=== PATIENT | female | born 1935 | race Caucasian/White ===

== ENCOUNTER 2016-05-24 08:00 | Day surgery (SDC) | payer MEDICARE, OTHER ==
[2016-05-24] MEDS ORDERED: TROPICAMIDE 1% OPHTH 2 ML DROPS OPTH ONE (08:14)
[2016-05-24] MEDS ORDERED: KETOROLAC 0.45% OPHTH DROPS OPTH ONE (08:14)
[2016-05-24] MEDS ORDERED: CYCLOPENTOLATE 1% OPHTH DROPS 2 ML OPTH ONE (08:14)
[2016-05-24] MEDS ORDERED: LACTATED RINGERS 500 ML IV ONE (08:24)
[2016-05-24] MEDS ORDERED: MIDAZOLAM 2 MG/2 ML VIAL IVP ONE (09:00)
[2016-05-24] MEDS ORDERED: EPINEPHrine 1 MG/ML AMP IO ONE (09:08)
[2016-05-24] MEDS ORDERED: levoFLOXacin 0.5% OPHTH DROPS 5 ML OPTH ONE (09:08)
[2016-05-24] MEDS ORDERED: PROPARACAINE 0.5% OPHTH DROPS 15 ML OPTH ONE (09:08)
[2016-05-24] MEDS ORDERED: BRIMONIDINE 0.2% OPHTH DROPS 5 ML OPTH ONE (09:08)
[2016-05-24] MEDS ORDERED: TETRACAINE OPHTH DROPS 2 ML OPTH ONE (09:08)
[2016-05-24] MEDS ORDERED: BSS/LIDOCAINE/EPINEPHRINE 1 ML SYRINGE IO ONE (09:08)
[2016-05-24] MEDS ORDERED: CHONDR SULF/HYALURONATE SYRINGE IO ONE (09:08)
== END 2016-05-24 08:01 | disposition home or self-care (01) ==
PROC: 08RJ3JZ Replacement of Right Lens with Synthetic Substitute, Percutaneous Approach (ICD-10-PCS; principal; 2016-05-24 09:10)
DX: H25.11 Age-related nuclear cataract, right eye (principal); Z87.891 Personal history of nicotine dependence
CPT/HCPCS: 66984; V2632

== ENCOUNTER 2017-02-23 07:16 | Outpatient (CLI) | payer MEDICARE, OTHER ==
[2017-02-23 19:22] LABS: ALBUMIN/GLOBULIN RATIO 1.7 (1.0-2.2); BASOPHILS # (AUTO) 0.1 10^3/uL (0.0-0.1); BASOPHILS % (AUTO) 1.2 %; BILIRUBIN,TOTAL 0.4 mg/dL (0.2-1.0); BUN - BLOOD UREA NITROGEN 20 mg/dL (6-20); CALCIUM 9.4 mg/dL (8.5-10.3); CARBON DIOXIDE - CO2 25 mmol/L (21-32); CHLORIDE 105 mmol/L (101-111); CREATININE 0.7 mg/dL (0.4-1.0); EOSINOPHILS # (AUTO) 0.3 10^3/uL (0.0-0.7); EOSINOPHILS % (AUTO) 4.3 %; GFR - MDRD 81 (>89); GLUCOSE 84 mg/dL (70-100); HGB - HEMOGLOBIN 13.9 g/dL (12.0-16.0); LYMPHOCYTES # (AUTO) 1.6 10^3/uL (1.5-3.5); LYMPHOCYTES % (AUTO) 24.5 %; MEAN CORPUSCULAR HEMOGLOBIN 30.5 pg (27.0-31.0); MEAN CORPUSCULAR HGB CONC 33.1 g/dL (32.0-36.0); MEAN CORPUSCULAR VOLUME 92.1 fL (81.0-99.0); MONOCYTES # (AUTO) 0.6 10^3/uL (0.0-1.0); MONOCYTES % (AUTO) 9.2 %; NEUTROPHILS # (AUTO) 3.9 10^3/uL (1.5-6.6); NEUTROPHILS % (AUTO) 60.8 %; NUCLEATED RED BLOOD CELLS AUTO 0.1 /100WBC; POTASSIUM 4.9 mmol/L (3.5-5.0); RED BLOOD COUNT 4.56 10^6/uL (4.20-5.40); RED CELL DISTRIBUTION WIDTH 13.9 % (12.0-15.0); SODIUM 137 mmol/L (135-145); TOTAL PROTEIN 6.4 g/dL (6.7-8.2); UNCORRECTED WHITE BLOOD COUNT 6.5 x10^3/uL; WHITE BLOOD COUNT 6.5 x10^3/uL (4.8-10.8)
== END 2017-02-23 07:17 | disposition home or self-care (01) ==
LOC: LAB.WCP 07:16
PROVIDERS: ATTEND Family Medicine
DX: R53.83 Other fatigue (principal)
CPT/HCPCS: 36415; 80053; 84443; 85025

== ENCOUNTER 2018-01-17 07:37 | Outpatient (CLI) | payer MEDICARE, OTHER ==
[2018-01-17] MEDS ORDERED: GADOBUTROL 7.5 MMOL/7.5 ML VIAL ONE (08:23)
[2018-01-17] MEDS ORDERED: GADOBUTROL 7.5 MMOL/7.5 ML VIAL IVP ONE ×2 (09:09)
--- NOTE | 2018-01-17 19:27 | MRI Report ---
Reason: PITUITARY MACROADENOMA Procedure Date: 01/17/2018 Accession Number: [id number] / [id number] Procedure: MRI - Brain W/WO CPT Code: FULL RESULT: EXAM: MRI BRAIN WITHOUT AND WITH CONTRAST EXAM DATE: 01/17/2018 09:27 AM. CLINICAL HISTORY: PITUITARY MACROADENOMA. COMPARISON: MRI of the brain and pituitary with and without contrast 02/02/2016. TECHNIQUE: Multiplanar, multisequence T1-weighted and fluid-sensitive MR sequences of the brain were performed. Sequences optimized for routine evaluation. Other: None. IV Contrast: 6.5 mL Gadavist. FINDINGS: The diffusion-weighted images are normal. There is no evidence of acute or subacute cerebral infarction. The craniocervical junction is normal. The corpus callosum is of normal size and configuration. There is a mucus retention cyst at the base of the right maxillary sinus. The optic nerves demonstrate symmetric signal intensity and size. The bilateral parotid spaces exhibit normal signal intensity. There is fluid intensity within the bilateral mastoid air cells. The optic nerves demonstrate symmetric signal intensity and size. The T2* sequence is normal. There is no evidence of subacute or chronic hemorrhage. The high resolution pre-and postcontrast T1 and T2-weighted images of the pituitary and sella again exhibits an area of hypointensity extending superiorly and medially from the cavernous right intracranial internal carotid artery. This appearance is unchanged dating back to the 2016 MRI. There is deviation of the infundibulum to the left. There is unchanged mild thickening and enhancement of the infundibulum. There is a small amount of enhancing tissue along the floor of the left side of the sella. This is unchanged when compared to the previous exam. There is no suprasellar mass. There has been resection within the right side of the sella. The small amount of isodense enhancing tissue abutting the right supraclinoid intracranial internal carotid artery is unchanged and contacts the thigh approximately 45 degrees. This may reflect a small amount of residual unchanged tumor. The FLAIR images demonstrate multiple punctuate T2 hyperintensities within the subcortical, deep, and periventricular white matter. This is consistent with a mild degree of chronic small vessel ischemia. The T2* sequence is normal. There is no evidence of subacute or chronic hemorrhage. There is normal enhancement within the brain parenchyma. There is normal enhancement within the deep venous sinuses. IMPRESSION: 1. There is no evidence of acute or subacute cerebral infarction. 2. There is unchanged deviation of the infundibulum to the left which exhibits mild thickening and enhancement. It is unchanged in appearance. There has been surgical resection again within the right side of the adenohypophysis. There is no evidence of new nodular enhancement to suggest areas of recurrent tumor. 3. There is mild degree of chronic small vessel ischemia.
== END 2018-01-17 07:38 | disposition home or self-care (01) ==
LOC: DI 07:37
PROVIDERS: ATTEND Family Medicine
DX: D35.2 Benign neoplasm of pituitary gland (principal); I13.0 Hypertensive heart and chronic kidney disease with heart failure and stage 1 through stage 4 chronic kidney disease, or unspecified chronic kidney disease; E11.22 Type 2 diabetes mellitus with diabetic chronic kidney disease; N18.9 Chronic kidney disease, unspecified; I50.9 Heart failure, unspecified; Z85.89 Personal history of malignant neoplasm of other organs and systems
CPT/HCPCS: 70553; A9585

== ENCOUNTER 2018-02-21 08:22 | Outpatient (CLI) | payer MEDICARE, OTHER ==
--- NOTE | 2018-02-21 14:25 | MRI Report ---
Reason: NECK PAIN Procedure Date: 02/21/2018 Accession Number: [id number] / [id number] Procedure: MRI - Cervical Spine W/O CPT Code: FULL RESULT: EXAM: MRI CERVICAL SPINE WITHOUT CONTRAST EXAM DATE: 02/21/2018 09:04 AM. CLINICAL HISTORY: Neck pain. COMPARISONS: Cervical spine 2 view 01/24/2018 11:06 AM. TECHNIQUE: Multiplanar, multisequence T1-weighted and fluid-sensitive sequences of the cervical spine without contrast. Other: None. FINDINGS: Neurologic Structures: The visualized posterior fossa structures are unremarkable. No signal abnormality in the visualized spinal cord. The spinal canal is adequate. Alignment: Straightening of the cervical spine is noted. Multilevel minimal, 1-2 mm, spondylolisthesis is seen including: C3-C4, C4-C5, C7-T1, T1-T2, T2-T3, and T3-T4. Bone Marrow: No gross fractures or bone lesions. No marrow edema. Interspace Levels/Facets: C1-C2: Unremarkable on sagittal series. C2-C3: Unremarkable. C3-C4: Mild left-sided degenerative facet change is seen. Minimal central dorsal disk bulge is seen. Anterior concavity to the ventral thecal sac is noted. No stenosis. C4-C5: Mild right-sided degenerative facet change is seen. Mild degenerative uncovertebral change is noted. Mild left foraminal stenosis. C5-C6: Mild loss of disk space height is seen. Diskogenic endplate irregularity and signal abnormality is seen. Mild circumferential bulge of disk/osteophyte complex is seen. Degenerative uncovertebral change is seen bilaterally. Effacement of the ventral thecal sac is noted with mild canal stenosis. Moderate bilateral foraminal stenosis is seen. C6-C7: Mild loss of disk space height is seen. Mild diskogenic endplate irregularity is noted. Minimal dorsal and mild ventral disk bulge is seen. Mild degenerative uncovertebral change is seen. Mild bilateral foraminal stenosis. C7-T1: Mild right-sided degenerative facet change. Mild right foraminal stenosis. Musculature: Normal. No edema or fatty atrophy. Other: The paravertebral and prevertebral soft tissues are normal. IMPRESSION: 1. Normal appearance to the cervical spinal cord. 2. Mild spondylosis is seen throughout the cervical and upper thoracic spine. Multilevel minimal spondylolisthesis is seen. 3. C4-C5: Left mild foraminal stenosis. 4. C5-C6: Mild canal stenosis. Bilateral moderate foraminal stenosis. 5. C6-C7: Bilateral mild foraminal stenosis. 6. C7-T1: Right mild foraminal stenosis. RADIA
== END 2018-02-21 08:23 | disposition home or self-care (01) ==
LOC: DI 08:22
PROVIDERS: ATTEND Family Medicine
DX: M48.02 Spinal stenosis, cervical region (principal); M47.812 Spondylosis without myelopathy or radiculopathy, cervical region; M47.814 Spondylosis without myelopathy or radiculopathy, thoracic region
CPT/HCPCS: 72141

== ENCOUNTER 2018-08-06 13:44 | Outpatient (CLI) | payer MEDICARE, OTHER | END 2018-08-06 13:45 | disposition critical access hospital (66) | LOC: EMS 13:44 | PROVIDERS: ATTEND Surgery | DX: R07.89 Other chest pain (principal) | CPT/HCPCS: A0425; A0427 ==

== ENCOUNTER 2018-08-06 14:07 | Emergency (ER) | payer MEDICARE, OTHER ==
[2018-08-06 14:46] LABS: BASOPHILS % (AUTO) 0.3 %; EOSINOPHILS # (AUTO) 0.3 10^3/uL (0.0-0.7); EOSINOPHILS % (AUTO) 5.8 %; HGB - HEMOGLOBIN 13.3 g/dL (12.0-16.0); LYMPHOCYTES # (AUTO) 1.2 10^3/uL (1.5-3.5); MEAN CORPUSCULAR HEMOGLOBIN 30.3 pg (27.0-31.0); MEAN CORPUSCULAR HGB CONC 33.3 g/dL (32.0-36.0); MEAN CORPUSCULAR VOLUME 90.9 fL (81.0-99.0); MEAN PLATELET VOLUME 7.2 fL (7.9-10.8); MONOCYTES # (AUTO) 0.5 10^3/uL (0.0-1.0); MONOCYTES % (AUTO) 9.6 %; NEUTROPHILS % (AUTO) 60.3 %; PLT - PLATELET COUNT 407 10^3/uL (130-450); RED BLOOD COUNT 4.41 10^6/uL (4.20-5.40); RED CELL DISTRIBUTION WIDTH 13.8 % (12.0-15.0)
--- NOTE | 2018-08-06 14:50 | XRAY Report ---
Reason: chest pain Procedure Date: 08/06/2018 Accession Number: [id number] / [id number] Procedure: XR - Chest 1 View X-Ray CPT Code: 38223 FULL RESULT: EXAM: CHEST RADIOGRAPHY EXAM DATE: 08/06/2018 02:15 PM. CLINICAL HISTORY: Chest Pain. COMPARISON: 08/23/2009 8:49 PM. TECHNIQUE: 1 view. FINDINGS: Lungs/Pleura: Minor streaky opacities are seen in the left lung base likely due to atelectasis or scarring. There is no consolidation. No effusion is present. There is no vascular congestion or pneumothorax. Mediastinum: Heart and mediastinal contours are notable for aortic calcification. Other: None. IMPRESSION: Minor left basilar scarring/atelectasis, otherwise, no acute findings. No CHF/fluid overload. RADIA
[2018-08-06 14:58] LABS: ALBUMIN 3.8 g/dL (3.2-5.5); ALBUMIN/GLOBULIN RATIO 1.5 (1.0-2.2); BILIRUBIN,TOTAL 0.5 mg/dL (0.2-1.0); CALCIUM 9.1 mg/dL (8.5-10.3); CREATININE 0.8 mg/dL (0.4-1.0); TOTAL PROTEIN 6.3 g/dL (6.7-8.2)
--- NOTE | 2018-08-06 15:17 | ED Physician Documentation ---
History of Present Illness - Stated complaint Stated Complaint: CHEST DISCOMFORT - Chief complaint Chief Complaint: Cardiac - Additonal information Additional information: 83-year-old female presents the emergency department for evaluation of palpitations which is been ongoing since this Sunday. The patient reports an ongoing racing in her chest. The patient denies any chest pain and only complains of the palpitations and abnormal sensation in her chest. The patient denies dyspnea on exertion, cough, URI symptoms or fever. No triggering factors. No relieving factors. No other associated symptoms. Review of Systems Constitutional: denies: Fever Eyes: denies: Discharge Ears: denies: Ear pain Nose: denies: Congestion Throat: denies: Sore throat Cardiac: reports: Palpitations. denies: Chest pain / pressure, Pedal edema Respiratory: denies: Dyspnea, Cough GI: denies: Abdominal Pain : denies: Dysuria Skin: denies: Rash Musculoskeletal: denies: Neck pain Neurologic: denies: Generalized weakness PD PAST MEDICAL HISTORY - Past Medical History Cardiovascular: None Respiratory: None Endocrine/Autoimmune: None GI: None : None HEENT: Other Psych: None Musculoskeletal: Osteoarthritis Derm: Psoriasis - Past Surgical History General: Appendectomy HEENT: Cataracts - Present Medications Home Medications: Ambulatory Orders Medication Instructions Recorded Confirmed Ascorbic Acid [Vitamin C] 1 tab PO DAILY 05/02/16 05/24/16 Multivitamin [Multivitamins] 1 tab PO DAILY 05/02/16 05/24/16 - Allergies Allergies/Adverse Reactions: Allergies Allergy/AdvReac Type Severity Reaction Status Date / Time morphine Allergy Nausea Verified 08/06/18 14:14 PD ED PE NORMAL - General General: Alert and oriented X 3, No acute distress - HEENT HEENT: Atraumatic, PERRL, EOMI, Ears normal - Neck Neck: Supple, no meningeal sign - Cardiac Cardiac: RRR, Strong equal pulses - Respiratory Respiratory: No respiratory distress, Clear bilaterally - Abdomen Abdomen: Soft, Non tender - Derm Derm: Normal color - Extremities Extremities: No deformity - Neuro Neuro: Alert and oriented X 3, Normal speech - Psych Psych: Normal mood Results - Vitals Vitals: Vital Signs - 24 hr 08/06/18 08/06/18 08/06/18 14:11 14:21 15:59 Temperature 36.4 C L Heart Rate 108 H 62 68 Respiratory 20 16 22 Rate Blood Pressure 125/103 H 105/60 131/82 H O2 Saturation 96 97 98 08/06/18 16:47 Temperature Heart Rate 79 Respiratory 24 Rate Blood Pressure 116/96 H O2 Saturation 94 Oxygen O2 Source Room air - EKG (time done) No standard instances Rhythm: NSR Intervals: Normal CO, QRS normal QRS: Normal Ischemia: Normal ST segments - Labs Labs: Laboratory Tests 08/06/18 08/06/18 08/06/18 14:41 14:41 14:41 WBC 5.0 RBC 4.41 Hgb 13.3 Hct 40.1 MCV 90.9 MCH 30.3 MCHC 33.3 RDW 13.8 Plt Count 407 MPV 7.2 L Neut # (Auto) 3.0 Lymph # (Auto) 1.2 L Larue # (Auto) 0.5 Eos # (Auto) 0.3 Baso # (Auto) 0.0 Absolute Nucleated RBC 0.00 Nucleated RBC % 0.0 D-Dimer Sodium 138 Potassium 4.1 Chloride 106 Carbon Dioxide 23 Anion Gap 9.0 BUN 16 Creatinine 0.8 Estimated GFR (MDRD) 69 L Glucose 89 Calcium 9.1 Total Bilirubin 0.5 AST 26 ALT 18 Alkaline Phosphatase 63 Troponin I < 0.04 Total Protein 6.3 L Albumin 3.8 Globulin 2.5 Albumin/Globulin Ratio 1.5 Lipase 25 08/06/18 08/06/18 14:41 17:00 WBC RBC Hgb Hct MCV MCH MCHC RDW Plt Count MPV Neut # (Auto) Lymph # (Auto) Larue # (Auto) Eos # (Auto) Baso # (Auto) Absolute Nucleated RBC Nucleated RBC % D-Dimer 206.4 Sodium Potassium Chloride Carbon Dioxide Anion Gap BUN Creatinine Estimated GFR (MDRD) Glucose Calcium Total Bilirubin AST ALT Alkaline Phosphatase Troponin I < 0.04 Total Protein Albumin Globulin Albumin/Globulin Ratio Lipase - Rads (name of study) CXR Radiology: Final report received, See rad report (IMPRESSION: Minor left basilar scarring/atelectasis, otherwise, no acute findings. No CHF/fluid overload. ) PD MEDICAL DECISION MAKING - ED course ED course: The patient's workup does not reveal a clear etiology for the source of her symptoms. The patient currently appears appropriate for discharge with further workup as an outpatient. I recommended an outpatient echocardiogram, Holter monitor and stress test. The patient understands and agrees. I discussed warning signs and recommended returning to the emergency department immediately for any worsening or any concerns Departure - Departure Disposition: 01 Home, Self Care Clinical Impression: Palpitations Condition: Good Instructions: ED Palpitations Follow-Up: More Wilkerson MD [Primary Care Provider] - Within 3 Days (Please follow-up with your primary care for further investigation. Please ask your primary care about an outpatient echocardiogram, Holter monitor and stress test to further assess her symptoms.) Comments: Please return to the emergency department for any worsening or any concerns
[2018-08-06] MEDS ORDERED: LORazepam 2 MG/ML VIAL IVP STA (15:42)
[2018-08-06 18:27] VITALS: BP 105/71
== END 2018-08-06 18:39 | disposition home or self-care (01) ==
LOC: EDUNIT# → ED 14:07
DX: R00.2 Palpitations (principal)
CPT/HCPCS: 36415; 71045; 80053; 83690; 84484; 85025; 85379; 93005; 96374; 99283; J2060

== ENCOUNTER 2020-03-24 14:34 | Outpatient (CLI) | payer MEDICARE, OTHER ==
[2020-03-24] MEDS ORDERED: GADOBUTROL 7.5 MMOL/7.5 ML VIAL ONE (15:06)
[2020-03-24] MEDS ORDERED: GADOBUTROL 7.5 MMOL/7.5 ML VIAL IVP ONE (16:40)
--- NOTE | 2020-03-24 17:11 | MRI Report ---
PROCEDURE: Brain W/WO INDICATIONS: PITUITARY MACROADENOMA CONTRAST: IV CONTRAST: Gadavist ml: 6 TECHNIQUE: Noncontrast sagittal and axial FLAIR, axial gradient echo, axial diffusion and ADC through the brain. Thin-slice sagittal and coronal T1 spin echo, coronal T2 fast spin echo through the pituitary. Aft er the administration contrast, optional dynamic coronal T1 spin echo, thin-slice coronal and sagitta l T1 spin echo images through the pituitary fossa; axial T1 spin echo with fat saturation through the brain. COMPARISON: 01/17/2018, 02/07/2016, 02/02/2016, 12/31/2013. Correlation is also made with the [facility] brain MR angiogram, 03/24/2020. FINDINGS: Image quality: Excellent. Pituitary Gland: Stable changes from pituitary resection can be seen. Pituitary tissue can be seen i nferiorly and on the left side. The pituitary stalk is thickened and is seen to the left of the midli ne. On precontrast T1-weighted images, the posterior pituitary bright spot is only faintly seen. Adjacent to the right cavernous internal carotid artery, there is again seen a small amount of poorly enhancing tissue that measures 2 to 3 mm, which is unchanged compared to the prior. The optic chiasm and the ventral forebrain demonstrate an unremarkable appearance. CSF Spaces: Ventricles are normal in size and shape. Basal cisterns are patent. No extra-axial flu id collections. Brain: No intracranial bleeds or mass effects. No abnormal intracranial enhancement. Concepcion-white ma tter interface is intact. Diffusion weighted images demonstrate no acute ischemic insults. Brain par enchymal volume loss and chronic small vessel ischemic change seen. Brainstem is normal. Normal intr avascular flow voids are present. Prominent perivascular spaces are incidentally noted. Skull and face: Calvarial marrow is normal in signal. Orbits appear normal. Sinuses: Sinuses and mastoids are clear. IMPRESSION: Stable prior pituitary resection changes, with no definite findings of abnormal recurren t tissue. There is a small amount of stable likely residual tumor seen on the right adjacent to the cavernous i nternal carotid artery. The pituitary infundibulum is thickened and deviated to the left, as before. Age-appropriate brain parenchymal volume loss and chronic small vessel ischemic change can be seen. Reviewed by: Roman Monzon MD on 03/24/2020 4:10 PM [facility] Approved by: Roman Monzon MD on 03/24/2020 4:10 PM [place] Station ID: [id number]
--- NOTE | 2020-03-24 17:13 | MRI Report ---
PROCEDURE: Angio Brain W/O (MRA) INDICATIONS: PITUITARY MACROADENOMA TECHNIQUE: Noncontrast axial 3-D buur-uh-syziti MR angiogram, with 3-dimensional maximum intensity projection (M IP) reformats of the internal carotid arteries and posterior circulation then performed. COMPARISON: 02/07/2016. Correlation is made with the accompanying brain MRI, 03/24/2020. FINDINGS: Image quality: Excellent. Anterior circulation: Intracranial internal carotid arteries demonstrate normal size and intralumina l flow signal. The flow within the paired anterior cerebral arteries is normal and symmetric. The f low within the middle cerebral arteries is normal and symmetric. The anterior communicating artery i s seen. No stenoses, occlusions, or aneurysms. Posterior circulation: Visualized portions of the vertebral arteries demonstrate normal caliber, and join to form a normal appearing basilar artery. Bilateral type origins of the posterior cereb ral arteries can be seen. The flow within the posterior cerebral arteries is normal and symmetric. N o stenoses, occlusions, or aneurysms. IMPRESSION: No aneurysms are seen. No significant stenosis is identified. Reviewed by: Roman Monzon MD on 03/24/2020 4:12 PM [facility] Approved by: Roman Monzon MD on 03/24/2020 4:12 PM [facility] Station ID: [id number]
== END 2020-03-24 14:35 | disposition home or self-care (01) ==
LOC: DI 14:34
PROVIDERS: ATTEND Physician Assistant
DX: D35.2 Benign neoplasm of pituitary gland (principal); R42 Dizziness and giddiness; R51.9 Headache, unspecified; R00.2 Palpitations
CPT/HCPCS: 70553; A9585; 70544

== ENCOUNTER 2020-07-02 12:51 | Outpatient (CLI) | payer MEDICARE, OTHER ==
--- NOTE | 2020-07-02 16:01 | Ultrasound Report ---
PROCEDURE: Carotid Doppler Complete INDICATIONS: VERTIGO TECHNIQUE: Color and pulse Doppler interrogation was performed of both carotid systems, with image documentation and velocity measurements. COMPARISON: None. FINDINGS: Right side: Brachial blood pressure: 129/70 mm Hg. Common carotid artery peak systolic velocity: 81 cm/sec. Internal carotid artery peak systolic velocity: 68 cm/sec. Internal carotid artery end diastolic velocity: 24 cm/sec. External carotid artery peak systolic velocity: 98 cm/sec. ICA/CCA peak systolic ratio: 0.8 . Concepcion scale imaging description: Moderate to severe plaque at the bifurcation. Percent internal carotid artery stenosis: Less than 50% stenosis . Vertebral artery: Flow direction is antegrade. Left side: Brachial blood pressure: 101/72 mm Hg. Common carotid artery peak systolic velocity: 70 cm/sec. Internal carotid artery peak systolic velocity: 119 cm/sec. Internal carotid artery end diastolic velocity: 34 cm/sec. External carotid artery peak systolic velocity: 122 cm/sec. ICA/CCA peak systolic ratio: 1.7 . Concepcion scale imaging description: Moderate to severe plaque at the bifurcation. Percent internal carotid artery stenosis: Less than 50% narrowing . Vertebral artery: Flow direction is antegrade. IMPRESSION: Less than 50% stenosis of the internal carotid arteries bilaterally. The estimate of stenosis included in the report of the imaging study was calculated using the NASCET method Reviewed by: Laly Mccarthy MD on 07/02/2020 4:00 PM PST Approved by: Laly Mccarthy MD on 07/02/2020 4:00 PM PST Station ID: [id number]
== END 2020-07-02 12:52 | disposition home or self-care (01) ==
LOC: DI 12:51
PROVIDERS: ATTEND Psychiatry & Neurology Neurology
DX: R42 Dizziness and giddiness (principal)
CPT/HCPCS: 93880

== ENCOUNTER 2020-09-29 13:59 | Outpatient (CLI) | payer MEDICARE, OTHER ==
[2020-09-29 14:49] LABS: BASOPHILS # (AUTO) 0.1 10^3/uL (0.0-0.1); BASOPHILS % (AUTO) 1.7 %; EOSINOPHILS # (AUTO) 0.3 10^3/uL (0.0-0.7); EOSINOPHILS % (AUTO) 5.2 %; HCT - HEMATOCRIT 41.9 % (37.0-47.0); HGB - HEMOGLOBIN 13.9 g/dL (12.0-16.0); LYMPHOCYTES # (AUTO) 1.4 10^3/uL (1.5-3.5); LYMPHOCYTES % (AUTO) 23.9 %; MEAN CORPUSCULAR HGB CONC 33.2 g/dL (32.0-36.0); MEAN CORPUSCULAR VOLUME 93.5 fL (81.0-99.0); MONOCYTES # (AUTO) 0.6 10^3/uL (0.0-1.0); MONOCYTES % (AUTO) 9.3 %; NEUTROPHILS # (AUTO) 3.5 10^3/uL (1.5-6.6); NEUTROPHILS % (AUTO) 59.7 %; PLT - PLATELET COUNT 420 10^3/uL (130-450); RED BLOOD COUNT 4.48 10^6/uL (4.20-5.40); RED CELL DISTRIBUTION WIDTH 13.3 % (12.0-15.0); WHITE BLOOD COUNT 5.9 x10^3/uL (4.8-10.8)
[2020-09-29 14:59] LABS: ALBUMIN 4.4 g/dL (3.2-5.5); ALBUMIN/GLOBULIN RATIO 1.7 (1.0-2.2); BILIRUBIN,TOTAL 0.5 mg/dL (0.2-1.0); CALCIUM 9.6 mg/dL (8.5-10.3); CREATININE 0.8 mg/dL (0.4-1.0); POTASSIUM 4.5 mmol/L (3.5-5.0)
[2020-09-29 15:16] LABS: THYROID STIMULATING HORMONE 1.68 uIU/mL (0.34-5.60)
[2020-09-29 15:23] LABS: PROLACTIN 3.88 ng/mL
== END 2020-09-29 14:00 | disposition home or self-care (01) ==
LOC: LAB 13:59
PROVIDERS: ATTEND Psychiatry & Neurology Neurology
DX: R42 Dizziness and giddiness (principal); Z87.898 Personal history of other specified conditions
CPT/HCPCS: 36415; 80053; 82607; 82746; 83921; 84146; 84443; 85025

== ENCOUNTER 2021-02-04 10:11 | Outpatient (CLI) | payer MEDICARE, OTHER | END 2021-02-04 10:12 | disposition home or self-care (01) | LOC: DI 10:11 | PROVIDERS: ATTEND Nurse Practitioner | DX: R00.2 Palpitations (principal); R07.89 Other chest pain; I95.89 Other hypotension; I87.8 Other specified disorders of veins | CPT/HCPCS: 93306 ==

== ENCOUNTER 2022-02-13 08:48 | Outpatient (CLI) | payer MEDICARE, OTHER ==
[~2022-02-13 08:48] MED LIST: GADOBUTROL 7.5 MMOL/7.5 ML VIAL ONE
[2022-02-13 09:09] LABS: CREATININE 0.7 mg/dL (0.4-1.0)
[2022-02-13] MEDS ORDERED: GADOBUTROL 7.5 MMOL/7.5 ML VIAL IVP ONE (12:45)
--- NOTE | 2022-02-13 17:33 | MRI Report ---
PROCEDURE: Angio Neck W/WO (MRA) INDICATIONS: PITUITARY MACROADENOMA, VERTIGO, NECK PAIN CONTRAST: IV CONTRAST: Gadavist ml: 6.0 TECHNIQUE: Axial and sagittal balanced GE through the neck. Coronal dynamic MRA after the administration of con trast in the arterial and venous phases, with rotating 3-dimensional maximum intensity projection (NC P) reformats constructed from subtraction images. COMPARISON: Correlation is made with prior carotid ultrasound, 07/02/2020. FINDINGS: Image quality: Excellent. Carotid system: Great vessels demonstrate a conventional anatomy as they arise from the aortic arch. The origins of the common carotid arteries appear normal. The calibers and courses of the common c arotid arteries are likewise normal. The carotid bifurcations demonstrate atherosclerotic irregulari ty. There is approximately 50% narrowing seen involving the left proximal internal carotid artery. No radiographically significant stenosis can be seen involving the right proximal internal carotid brendon ry. The more distal internal carotid arteries demonstrate normal course and caliber. Posterior circulation: There is approximately 50% narrowing seen involving the origin of the left ashleigh tebral artery. No significant stenosis can be seen involving the origin of the right vertebral artery . The more superior portions of the vertebral arteries demonstrate normal course and caliber. Verteb ral arteries join to form a normal appearing basilar artery. Miscellaneous: Subclavian arteries are patent throughout. Pre-contrast images through the neck demo nstrate no soft tissue abnormalities. IMPRESSION: Approximately 50% narrowing seen involving the left proximal internal carotid artery. Approximately 50% stenosis involving the origin of the left vertebral artery. Reviewed by: Roman Monzon MD on 02/13/2022 4:32 PM [facility] Approved by: Roman Monzon MD on 02/13/2022 4:32 PM [facility] Station ID: [id number]
== END 2022-02-13 08:49 | disposition home or self-care (01) ==
LOC: LAB 08:48
PROVIDERS: ATTEND Nurse Practitioner
DX: I65.22 Occlusion and stenosis of left carotid artery (principal); I65.02 Occlusion and stenosis of left vertebral artery; D35.2 Benign neoplasm of pituitary gland; M54.2 Cervicalgia; R42 Dizziness and giddiness
CPT/HCPCS: 36415; 70549; 82565; A9585

== ENCOUNTER 2022-02-15 09:43 | Outpatient (CLI) | payer MEDICARE, OTHER ==
[2022-02-15] MEDS ORDERED: GADOBUTROL 7.5 MMOL/7.5 ML VIAL IVP ONE (11:13)
--- NOTE | 2022-02-15 12:10 | MRI Report ---
PROCEDURE: Brain W/WO INDICATIONS: PITUITARY MACROADENOMA, VERTIGO, NECK PAIN CONTRAST: IV CONTRAST: Gadavist ml: 6.0 TECHNIQUE: Noncontrast axial T1 spin echo, axial T2 fast spin echo, sagittal and axial FLAIR, coronal T2 fast sp in echo, axial gradient echo, axial diffusion and ADC through the brain. After the administration of contrast, axial and coronal T1 spin echo with fat saturation through the brain. COMPARISON: MRI brain 03/24/2020, 01/17/2018, 01/23/2020 FINDINGS: Image quality: Excellent. CSF spaces: Basal cisterns are patent. No extra-axial fluid collections. Ventricles are normal in size and shape. Brain: No midline shift. No intracranial bleeds or masses. No abnormal intracranial enhancement. There is cerebral volume loss for age. There is periventricular white matter chronic small vessel is chemic change. The brainstem appears normal. Diffusion-weighted images demonstrate no acute ischemi c insults. No chronic ischemic insults. Normal intravascular flow voids are present. Surgical changes reflecting pituitary resection with residual tissue inferiorly is a again identified . Pituitary is not remains deviated to left midline shift. No visualized evidence of mass. Skull and face: Calvarial marrow is normal in signal. Orbits appear normal. Sinuses: Sinuses and mastoids appear clear. IMPRESSION: 1. No acute intracranial process. 2. Moderate atrophy and chronic microvascular ischemic changes. 3. Stable pituitary resection changes. No evidence of recurrent disease. Reviewed by: Laly Mccarthy MD on 02/15/2022 12:09 PM PDT Approved by: Laly Mccarthy MD on 02/15/2022 12:09 PM PDT Station ID: [id number]
== END 2022-02-15 09:44 | disposition home or self-care (01) ==
LOC: DI 09:43
PROVIDERS: ATTEND Nurse Practitioner
DX: D35.2 Benign neoplasm of pituitary gland (principal); M54.2 Cervicalgia; R42 Dizziness and giddiness; G31.89 Other specified degenerative diseases of nervous system; I67.82 Cerebral ischemia
CPT/HCPCS: 70553; A9585

== ENCOUNTER 2022-08-28 10:25 | Outpatient (CLI) | payer MEDICARE, OTHER ==
--- NOTE | 2022-08-28 12:32 | MRI Report ---
PROCEDURE: CERVICAL SPINE WO INDICATIONS: NECK PAIN TECHNIQUE: Noncontrast sagittal T1 spin echo and T2 fast spin echo, sagittal STIR, foraminal oblique sagittal T2 fast spin echo, and axial gradient echo or T2 fast spin echo through the cervical spine. COMPARISON: 02/21/2018. FINDINGS: Image quality: Excellent. Alignment and Curvature: Trace anterolisthesis of C3 on C4 and of C4 on C5. Trace anterolisthesis of C7 on T1. Bone Marrow: Marrow demonstrates normal overall signal. Spinal Cord: Visualized spinal cord has normal size and signal. No cerebellar tonsillar herniation. Paraspinous Soft Tissues: No paravertebral masses. Prevertebral soft tissues are normal in thicknes s. C2-C3: Right facet hypertrophy. No canal stenosis or foraminal stenosis. C3-C4: Bilateral facet hypertrophy. No canal stenosis. AP diameter of the canal is 10.6 mm. Moderat e to severe right foraminal narrowing with the degree of right foraminal C4 Nerve Root impingement. M oderate left foraminal narrowing. C4-C5: Trace anterolisthesis of C4 and C5. Posterior disc versus osteophyte abutting the cord. No ca nal stenosis. AP diameter of the canal is 10.8 mm. Bilateral facet hypertrophy. Moderate right forami nal narrowing with flattening deformity on the exiting right C5 nerve root. No significant left rainer inal narrowing. C5-C6: Diffuse posterior disc plus osteophyte flattening the ventral cord. AP diameter of the canal is 9.5 mm. There is bilateral lateral recess stenosis. There is bilateral prominent uncovertebral alex nt hypertrophy as well as bilateral facet hypertrophy. Severe bilateral foraminal narrowing with bila teral foraminal C6 nerve root impingement. C6-C7: Posterior disc loss osteophyte. No canal stenosis. AP diameter of the canal is 10.8 mm. Bilat eral facet hypertrophy. Moderate bilateral foraminal narrowing with flattening deformity on the exiti ng bilateral C7 nerve roots. C7-T1: Bilateral facet hypertrophy. No canal stenosis. Moderate to severe right foraminal narrowing with a degree of right foraminal C8 nerve root impingement. IMPRESSION: 1. Diffuse cervical spondylitic change with multilevel facet hypertrophy and multilevel uncovertebral joint hypertrophy and multilevel foraminal narrowing. 2. There is mild canal stenosis at C5-C6. There is no significant canal stenosis at other cervical le vels. 3. Multilevel foraminal narrowing as described above. Findings include severe bilateral foraminal bryan rowing at C5-C6 as well as moderate to severe right foraminal narrowing at C7-T1. Reviewed by: Evans Gomes MD on 08/28/2022 12:31 PM PDT Approved by: Evans Gomes MD on 08/28/2022 12:31 PM PDT Station ID: [id number]
--- NOTE | 2022-08-28 12:59 | XRAY Report ---
PROCEDURE: Shoulder 2 View LT INDICATIONS: PAIN IN LEFT SHOULDER TECHNIQUE: 2 views of the shoulder were acquired. COMPARISON: Chest radiograph 08/06/2018 FINDINGS: Bones: No definite acute fracture or dislocation identified. Degenerative changes of the acromioclavi cular joint are present. Degenerative changes of the glenohumeral joint may also be present with appe arance of humeral head spurring on included views. Soft tissues: No suspicious soft tissue calcifications. IMPRESSION: No definite acute fracture or dislocation identified on this two-view exam. Irregular contour of the humeral head may be related to degenerative spurring, however an acute fracture is difficult to fully exclude on this exam. If symptoms persist or otherwise clinically indicated, follow-up 3 view radiog raphs and/or CT or MRI may be helpful for further evaluation. Reviewed by: Julito Forrest MD on 08/28/2022 12:57 PM PDT Approved by: Julito Forrest MD on 08/28/2022 12:57 PM PDT Station ID: [id number]
== END 2022-08-28 10:26 | disposition home or self-care (01) ==
LOC: DI 10:25
PROVIDERS: ATTEND Nurse Practitioner
DX: M47.22 Other spondylosis with radiculopathy, cervical region (principal); M48.02 Spinal stenosis, cervical region; M19.012 Primary osteoarthritis, left shoulder

== ENCOUNTER 2023-06-26 09:38 | Outpatient (CLI) | payer MEDICARE, OTHER ==
--- NOTE | 2023-06-27 11:18 | MRI Report ---
PROCEDURE: Shoulder LT WO INDICATIONS: LEFT SHOULDER PAIN TECHNIQUE: Noncontrast oblique coronal T2 fast spin echo with fat saturation, oblique sagittal T1 spin echo and T2 fast spin echo with fat saturation, axial T1 spin echo and T2 fast spin echo with fat saturation t hrough the shoulder. COMPARISON: X-ray left shoulder, 08/28/2022. FINDINGS: Image quality: Excellent. Rotator cuff: There is wabccwmasexc-ta-hzgd grade partial-thickness tear of the distal supraspinatus tendon along the bursal and articular surfaces with associated moderate tendinosis. No tendon retract ion or muscle atrophy. There is vwe-eu-ryrhimhcrxxd grade partial-thickness tear of the subscapularis tendon moving the foot print. There is moderate subscapular tendinosis. No tendon retraction or muscle atrophy. There is yko-zb-qvlnvwzjrywq grade partial-thickness tear of the subscapularis tendon and moderate te ndinosis. No tendon retraction or muscle atrophy. Bones and bursae: No bone marrow contusions or fractures. There is severe glenohumeral joint degener ation and moderate acromioclavicular joint degeneration. The acromion demonstrates conventional jona zuleima, without an os acromiale. There is subcoracoid bursal fluid. There are joint bodies within the subcoracoid bursa. Capsule and soft tissues: There is degenerative tearing of the glenoid labrum. In the absence of int ra-articular contrast, the glenohumeral ligaments appear intact. There is moderate tendinosis of the long head of the biceps tendon which demonstrates normal location and morphology. The rotator interv al appears normal, without fibrosis. The coracohumeral ligament is normal in thickness. IMPRESSION: 1. Rlgxnryq-uk-gaxr grade partial-thickness tear of the supraspinatus tendon. No tendon retraction. T here is mild supraspinous muscle atrophy. 2. Wjj-uq-brcjjkbckjil grade partial-thickness tear of the infraspinatus and subscapularis tendons. N o tendon retraction or muscle atrophy. 3. Moderate tendinosis of the long head of the biceps. 4. Severe glenohumeral joint degeneration and moderate acromioclavicular joint degeneration. 5. Diffuse degenerative labral tearing. 6. Subcoracoid bursal fluid and intra-articular bodies. Reviewed by: Vidal Huizar MD on 06/27/2023 11:17 AM PST Approved by: Vidal Huizar MD on 06/27/2023 11:17 AM PST Station ID: [id number]
== END 2023-06-26 09:39 | disposition home or self-care (01) ==
LOC: DI 09:38
PROVIDERS: ATTEND Nurse Practitioner
DX: M75.112 Incomplete rotator cuff tear or rupture of left shoulder, not specified as traumatic (principal); M62.512 Muscle wasting and atrophy, not elsewhere classified, left shoulder; M67.814 Other specified disorders of tendon, left shoulder; M19.012 Primary osteoarthritis, left shoulder; S43.432A Superior glenoid labrum lesion of left shoulder, initial encounter; M75.52 Bursitis of left shoulder

== ENCOUNTER 2023-12-19 12:25 | Outpatient (CLI) | payer MEDICARE, OTHER ==
[~2023-12-19 12:25] MED LIST changes: -GADOBUTROL 7.5 MMOL/7.5 ML VIAL ONE; +GADOTERATE MEGLUMINE 7.5 MMOL/15 ML VIAL ONE
[2023-12-19 12:56] LABS: CREATININE 0.8 mg/dL (0.6-1.3)
[2023-12-19] MEDS: GADOTERATE MEGLUMINE 7.5 MMOL/15 ML VIAL IVP ONE (14:44)
--- NOTE | 2023-12-19 17:01 | MRI Report ---
PROCEDURE: Brain W/WO INDICATIONS: PITUITARY MACROADENOMA CONTRAST: CLARISCAN 12ML TECHNIQUE: Noncontrast axial T1 spin echo, axial T2 fast spin echo, sagittal and axial FLAIR, coronal T2 fast sp in echo, axial gradient echo, axial diffusion and ADC through the brain. After the administration of contrast, axial and coronal T1 spin echo with fat saturation through the brain. COMPARISON: MRI brain 02/07/2022, 2019 FINDINGS: Image quality: Excellent. CSF spaces: Basal cisterns are patent. No extra-axial fluid collections. Ventricles are normal in size and shape. Brain: No midline shift. No intracranial bleeds or masses. No abnormal intracranial enhancement. There is cerebral volume loss for age. There is periventricular white matter chronic small vessel is chemic change. The brainstem appears normal. Diffusion-weighted images demonstrate no acute ischemi c insults. No chronic ischemic insults. Normal intravascular flow voids are present. 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 Appearance is stable wit hout evidence of recurrent disease. Skull and face: Calvarial marrow is normal in signal. Orbits appear normal. Sinuses: Sinuses and mastoids appear clear. IMPRESSION: 1. No acute intracranial process. 2. Moderate atrophy and chronic microvascular ischemic changes. 3. Stable appearance of pituitary macroadenoma resection without evidence of recurrent disease. Stabl e compared to 2021. Reviewed by: Laly Mccarthy MD on 12/19/2023 4:59 PM PDT Approved by: Laly Mccarthy MD on 12/19/2023 4:59 PM PDT Station ID: [id number]
== END 2023-12-19 12:26 | disposition home or self-care (01) ==
LOC: DI 12:25
PROVIDERS: ATTEND Nurse Practitioner
DX: G31.9 Degenerative disease of nervous system, unspecified (principal); I67.82 Cerebral ischemia
CPT/HCPCS: 36415; 82565

== ENCOUNTER 2024-01-15 11:52 | Outpatient (CLI) | payer MEDICARE, OTHER ==
[2024-01-15 17:09] LABS: CALCIUM 9.3 mg/dL (8.5-10.3); CREATININE 0.7 mg/dL (0.6-1.3); POTASSIUM 4.5 mmol/L (3.5-4.5)
[2024-01-15 17:20] LABS: THYROID STIMULATING HORMONE 1.9 uIU/mL (0.34-5.60)
== END 2024-01-15 11:53 | disposition home or self-care (01) ==
LOC: LAB 11:52
PROVIDERS: ATTEND Nurse Practitioner
DX: D35.2 Benign neoplasm of pituitary gland (principal); R42 Dizziness and giddiness
CPT/HCPCS: 36415; 80048; 82024; 84146; 84305; 84443

== ENCOUNTER 2024-01-15 12:01 | Outpatient (CLI) | payer MEDICARE, OTHER ==
--- NOTE | 2024-01-15 15:51 | XRAY Report ---
PROCEDURE: Chest 2V INDICATIONS: RESPIRATORY CRACKLES TECHNIQUE: 2 views of the chest were acquired. COMPARISON: Chest radiographs 08/06/2018. FINDINGS: Surgical changes and devices: None. Lungs and pleura: No pleural effusions or pneumothorax. Chronic interstitial prominence is seen bila terally. No focal consolidation. Mediastinum: Mediastinal contours appear normal. Heart size is normal. Bones and chest wall: No suspicious bony lesions. Overlying soft tissues appear unremarkable. IMPRESSION: Chronic-appearing reticulations may be related to mild chronic interstitial lung disease although mil d edema or an atypical or viral pneumonia are not excluded. Reviewed by: Julito Romero MD on 01/15/2024 3:49 PM PDT Approved by: Julito Romero MD on 01/15/2024 3:49 PM PDT Station ID: [id number]
== END 2024-01-15 12:02 | disposition home or self-care (01) ==
LOC: DI 12:01
PROVIDERS: ATTEND Nurse Practitioner
DX: R09.89 Other specified symptoms and signs involving the circulatory and respiratory systems (principal); R91.8 Other nonspecific abnormal finding of lung field; D35.2 Benign neoplasm of pituitary gland; R42 Dizziness and giddiness
CPT/HCPCS: 36415; 80048; 82024; 84146; 84305; 84443

== ENCOUNTER 2024-01-19 08:00 | Outpatient (CLI) | payer MEDICARE, OTHER | END 2024-01-19 23:59 | disposition home or self-care (01) | LOC: LAB.WCP 08:00 | PROVIDERS: ATTEND Nurse Practitioner | DX: D35.2 Benign neoplasm of pituitary gland (principal) | CPT/HCPCS: 82530 ==

== ENCOUNTER 2024-01-29 12:59 | Outpatient (CLI) | payer MEDICARE, OTHER ==
--- NOTE | 2024-01-30 13:26 | CT Report ---
PROCEDURE: Chest WO INDICATIONS: RESPIRATORY CRACKLES TECHNIQUE: A CT scan of the chest was performed. Intravenous contrast media was not administered. Images were re corded and evaluated at appropriate window settings. Reformats: axial MIP of the chest, coronal and s agittal. For radiation dose reduction, the following was used: automated exposure control, adjustment of mA and/or kV according to patient size. COMPARISON: Chest radiographs 01/15/2024 FINDINGS: Image quality: Diagnostic. Chest wall and lower neck: No thyroid nodule which requires sonographic follow up. No axillary or sup raclavicular adenopathy by size. Lungs and pleura: No consolidation. Moderate centrilobular and paraseptal emphysema. No pleural effus ions. No pneumothorax. Mediastinum: Heart size is normal. No pericardial effusion. No large vessel abnormality. No mediastin al adenopathy by size criteria. Possible irregular nodule versus scarring or atelectasis in the post erior right lower lobe (4/69). This lesion is slightly more prominent on coronal and sagittal images. No other suspicious pulmonary nodules. Moderate to severe coronary artery calcifications. Moderate a ortic atherosclerotic calcifications. Bones: No aggressive osseous abnormality. Probable bone island in the T6 vertebral body. Generalized osteopenia. Multilevel spondylosis. Upper Abdomen: A diverticulum is incidentally noted at the second portion of the duodenum. IMPRESSION: 1.Right lower lobe irregular nodule versus scarring or atelectasis measuring 9 mm in average diameter . Recommend three-month follow-up CT for further evaluation. 2.Moderate centrilobular and paraseptal emphysema. 3.Moderate to severe coronary calcifications. Consider cardiology referral. Reviewed by: Julito Romero MD on 01/30/2024 12:25 PM AKTANISHA Approved by: Julito Romero MD on 01/30/2024 12:25 PM AKTANISHA Station ID: [id number]
== END 2024-01-29 13:00 | disposition home or self-care (01) ==
LOC: DI 12:59
PROVIDERS: ATTEND Nurse Practitioner
DX: J43.2 Centrilobular emphysema (principal); R09.89 Other specified symptoms and signs involving the circulatory and respiratory systems; I25.10 Atherosclerotic heart disease of native coronary artery without angina pectoris